=== PATIENT | female | born 1940 | race Caucasian/White ===

== ENCOUNTER → 2018-10-11 | Outpatient (CLI) | payer MEDICARE ==
[~2018-10-11] MED LIST: AMLO10TA8 PO; ASCO500C2 PO; ASPI-515 PO; ATOR20TA PO; CALCIUM PO; CELE200C PO; CLOP75TA52 PO; COD500OI PO; CYAN100014 PO; FOLI-17 PO; HYDR200T72 PO; HYDR25TA6 PO; LOSA50TA14 PO; METH2.5T PO; OMEG500C3 PO; OMEP-110 PO; VITAMIN D PO
== END | disposition home or self-care (01) ==
LOC: CFH 12:34
PROVIDERS: ATTEND Otolaryngology
DX: K13.21 Leukoplakia of oral mucosa, including tongue (principal); R68.84 Jaw pain
CPT/HCPCS: 70486

== ENCOUNTER → 2019-09-12 | Outpatient (CLI) | payer MEDICARE | END | disposition home or self-care (01) | LOC: RAD 17:09 | PROVIDERS: ATTEND Physician Assistant Medical | DX: R79.1 Abnormal coagulation profile (principal) | CPT/HCPCS: 93970 ==